=== PATIENT | female | born 1960 | race Caucasian/White ===

== ENCOUNTER 2018-04-23 19:00 | Emergency (ER) | payer MEDICAID ==
[~2018-04-23] VITALS: Ht 149.9 cm; Wt 83.7 kg
[~2018-04-23 19:00] MED LIST: ASPI81CT95 PO; ATOR20TA PO; CALC1CAP26 PO; ISOS10TA9 PO; METO25TA PO; OMEP40EC1 PO; [UNRECOGNIZED DRUG - CODE] PO
[2018-04-23 19:06] VITALS: BP 187/98
--- NOTE | 2018-04-23 20:02 | NUR ---
57 Y/O F BIB DAUGHTER WITH C/O BACK OF HEAD ACHE, BL EAR RINGING, SORE THROAT, DIZZY, CHILLS X 10 DAYS WORSE THE LAST 2 DAYS, DIARRHEA TODAY;PT DENIES N/V; SKIN IS INTACT, PINK/WARM/DRY; AAOX4, PERRL, WITH EVEN AND STEADY GAIT; LUNGS CLEAR BL, BREATHING UNLABORED; HR EVEN AND REGULAR, BL PERIPHERAL PULSES PRESENT; BS ACTIVE X4, NO TENDERNESS TO PALPATION, NO HEPATOSPLENOMEGALLY PALPATED, RESONANT TO PERCUSSION; PT DENIES ANY FEVER, CP, SOB, OR COUGH AT THIS TIME; PT STATES 10/10 PAIN AT THIS TIME; VSS; PATIENT POSITIONED FOR COMFORT; HOB ELEVATED; BEDRAILS UP X2; BED DOWN.
--- NOTE | 2018-04-23 20:02 | NUR ---
PT AMBULATED TO BED 7 AT THIS TIME
--- NOTE | 2018-04-23 20:03 | NUR ---
[facility] MADE AWARE OF PTS CURRENT CONDITION
[2018-04-23 20:16] LABS: CARBON DIOXIDE 24.7 mmol/L (21-32); CREATININE 0.7 mg/dL (0.6-1.3); POTASSIUM 3.7 mmol/L (3.5-5.1)
[2018-04-23 20:23] LABS: ALBUMIN 3.6 g/dL (3.4-5.0); TOTAL BILIRUBIN 0.2 mg/dL (0.0-1.0)
[2018-04-23 20:29] LABS: BASOPHILS % (AUTO) 2.3 % (0.0-2.0); EOSINOPHILS % (AUTO) 2.5 % (0.0-4.0); HEMATOCRIT 37.7 % (36-48); HEMOGLOBIN 12.4 g/dL (12.0-16.0); LYMPHOCYTES % (AUTO) 35.6 % (20.5-51.1); MEAN CORPUSCULAR HEMOGLOBIN 27 pg (27-31); MEAN CORPUSCULAR HGB CONC 33 g/dL (33-37); MONOCYTES % (AUTO) 8.4 % (1.7-9.3); NEUTROPHILS % (AUTO) 51.2 % (42.2-75.2); PLATELET COUNT (AUTO) 270 K/uL (140-450); RED BLOOD CELL COUNT(AUTO) 4.59 MIL/uL (4.20-5.40); RED CELL DISTRIBUTION WIDTH 14.1 % (11.6-13.7)
--- NOTE | 2018-04-23 21:54 | NUR ---
DR. GOMEZ AT BEDSIDE EVALUATING
[2018-04-23] MEDS ORDERED: KETOROLAC 60 MG/2 ML VIAL IM ONE (22:00)
[2018-04-23 22:51] VITALS: BP 145/89
--- NOTE | 2018-04-23 22:53 | NUR ---
Patient discharged with v/s stable. Written and verbal after care instructions given and explained. Patient alert, oriented and verbalized understanding of instructions. Ambulatory with steady gait. All questions addressed prior to discharge. ID band removed. Patient advised to follow up with PMD. Rx of MOTRIN, NORCO, ATARAX given. Patient educated on indication of medication including possible reaction and side effects. Opportunity to ask questions provided and answered.
== END 2018-04-23 22:51 | disposition home or self-care (01) ==
LOC: MED 19:00
DX: R51 Headache (principal); R50.9 Fever, unspecified; R06.02 Shortness of breath; K21.9 Gastro-esophageal reflux disease without esophagitis; I10 Essential (primary) hypertension; Z79.82 Long term (current) use of aspirin; Z88.0 Allergy status to penicillin; Z79.899 Other long term (current) drug therapy; Z86.73 Personal history of transient ischemic attack (TIA), and cerebral infarction without residual deficits
CPT/HCPCS: 36415; 80053; 81002; 81025; 83690; 85025; 96372; 99284; J1885

== ENCOUNTER 2021-06-19 14:25 | Emergency (ER) | payer MEDICAID ==
[~2021-06-19] VITALS: Ht 154.9 cm; Wt 79.4 kg
[~2021-06-19 14:25] MED LIST changes: -OMEP40EC1 PO; +OMEP40EC24 PO
[2021-06-19 14:28] VITALS: BP 117/68
--- NOTE | 2021-06-19 14:28 | NUR ---
60 y/o Female BIB daughter for evaluation of stroke-like symptoms x 2 days including slurred speech and gen weakness. Per patient's daughter, the patient initially complained of waking up with a cramping sensation to the right hand which was alleviated with massage. There is loss of sensation and numbness to right arm. Per pt there is numbness to the left side of her face and with slight difficulty speaking x 2 days. Today pt has a c/o chest pain radiating to the back of her nek 7/10 pain. PmHx: CAD, HTN, CVA 2009, GERD Allergies: Eggs/PCNs Home meds: see list
--- NOTE | 2021-06-19 14:28 | NUR ---
Alerted to pt in lobby with stroke-like symptoms, ERMD aware. Pt assisted to come back to room 03
--- NOTE | 2021-06-19 14:31 | NUR ---
Patient ambulated with assistance to bed 3.
--- NOTE | 2021-06-19 14:31 | NUR ---
ERMD at bedside to assess pt. Made aware of HR of 47. NNO at this time
--- NOTE | 2021-06-19 14:35 | NUR ---
Blood drawn and IV insertion successful
--- NOTE | 2021-06-19 14:44 | NUR ---
Radiology at bedside to perform xray
[2021-06-19 15:33] LABS: BASOPHILS # (AUTO) 0.1 K/uL (0.00-0.22); BASOPHILS % (AUTO) 0.5 % (0.0-2.0); EOSINOPHILS # (AUTO) 0.1 K/uL (0-0.4); EOSINOPHILS % (AUTO) 1.3 % (0.0-4.0); HEMATOCRIT 39.9 % (36-48); HEMOGLOBIN 13.1 g/dL (12.0-16.0); LYMPHOCYTES # (AUTO) 5.1 K/uL (2.5-16.5); LYMPHOCYTES % (AUTO) 45.8 % (20.5-51.1); MEAN CORPUSCULAR HEMOGLOBIN 27 pg (27-31); MEAN CORPUSCULAR HGB CONC 33 g/dL (33-37); MEAN CORPUSCULAR VOLUME 82.3 fL (80-94); MONOCYTES # (AUTO) 0.8 K/uL (0.8-1.0); MONOCYTES % (AUTO) 7.1 % (1.7-9.3); NEUTROPHILS % (AUTO) 45.3 % (42.2-75.2); PLATELET COUNT (AUTO) 313 K/uL (140-450); RED BLOOD CELL COUNT(AUTO) 4.84 MIL/uL (4.20-5.40); RED CELL DISTRIBUTION WIDTH 15.1 % (11.6-13.7); WHITE BLOOD COUNT (AUTO) 11.1 K/uL (4.8-10.8)
[2021-06-19 15:49] LABS: ALBUMIN 4.1 g/dL (3.4-5.0); ANION GAP 14.9 (8-16); CARBON DIOXIDE 26.4 mmol/L (21-32); CREATININE 0.8 mg/dL (0.6-1.3); POTASSIUM 4.3 mmol/L (3.5-5.1); TOTAL BILIRUBIN 0.4 mg/dL (0.0-1.0)
[2021-06-19 15:50] LABS: PROTHROMBIN TIME 10.2 secs (10.8-13.4)
--- NOTE | 2021-06-19 18:58 | NUR ---
PT WOULD LIKE TO EAT, ERMD MADE AWARE. PT CAN EAT IF BEDSIDE NURSING SWALLOW EVAL COMPLETED. BEDSIDE NURSING SWALLOW DONE AND PASSED. NO COUGHING OR DYSPHAGIA AT THIS TIME. ABLE TO SWALLOW FREELY.
--- NOTE | 2021-06-19 19:05 | NUR ---
RAMBO PAREDES TEST DONE AND HANDED TO MOBILE APPLICATION ARCHITECT.
--- NOTE | 2021-06-19 19:44 | NUR ---
PT LAYING IN BED LOCKED IN LOWEST POSITION W X2 SIDERAILS UP FOR PT SAFETY. PT DENIES ANY CHEST PAIN OR SOB. PT REPORTS ON GOING NECK PAIN 03/13 (ERMD MADE AWARE). PT REPORTS FRIDAY SHE BEGAN TO HAVE R ARM NUMBNESS AND WEAKNESS, W INABILITY TO FULLY CLOSE HER HAD, REPORTS 3 OF HER FINGERS DONT FULLY CLOSED WHEN SHE CLOSES HER HAND. DENIES GENERALIZED BODY WEAKNESS EXCEPT FOR R ARM. PT ALSO REPORTS HER L SIDE OF MOUTH FEELS LIKE ITS BEING PULLED BUT HER SPEECH HAS IMPROVED. SPEECH NOTED CLEAR AT THIS TIME, PT REPORTS SHE HAD JUST FINISHED A SALAD W/O DIFFICULTY SWALLOWING. VSS. BREATHING EVEN AND UNLABORED. NAD NOTED, WILL CONTINUE TO MONITOR. DAUGHTER AT BEDSIDE.
--- NOTE | 2021-06-19 19:50 | NUR ---
PT AMBULATED TO BATHROOM W STEADY GAIT. DAUGHTER BY SIDE.
[2021-06-19] MEDS ORDERED: ACETAMINOPHEN 325 MG TAB PO ONE (20:00)
--- NOTE | 2021-06-19 22:01 | NUR ---
PT REPORTS PAIN IMPROVEMENT. REPORTS SHE FEELS GOOD. VSS. BREATHING EVEN AND UNLABORED. NAD NOTED, WILL CONTINUE TO MONITOR.
[2021-06-19 22:35] LABS: APPEARANCE,URINE CLEAR (CLEAR); BILIRUBIN,URINE NEGATIVE (NEGATIVE); BLOOD, URINE NEGATIVE (NEGATIVE); COLOR,URINE YELLOW (YELLOW); LEUKOCYTE ESTERASE ,URINE NEGATIVE (NEGATIVE); NITRITE, URINE NEGATIVE (NEGATIVE); UGLUCOSE NEGATIVE (NEGATIVE)
--- NOTE | 2021-06-20 00:15 | NUR ---
PT APPEARS TO BE RESTING W EYES CLOSED, BLANKET ON. BREATHING EVEN AND UNLABORED. NAD NOTED, WILL CONTINUE TO MONITOR. VSS.
--- NOTE | 2021-06-20 02:50 | NUR ---
PT APPEARS TO BE RESTING W EYES CLOSED SUPINE POSITION, BLANKET ON. BED LOCKED IN LOWEST POSITION W X2 SIDERAILS UP FOR PT SAFETY. BREATHING EVEN AND UNLABORED. NAD NOTED, WILL CONTINUE TO MONITOR. VSS.
--- NOTE | 2021-06-20 04:25 | NUR ---
Pt report given to CLEMENT REYNA FROM [facility] – [place]. Transfer of care at this time.
[2021-06-20 04:45] VITALS: BP 116/62
--- NOTE | 2021-06-20 04:45 | NUR ---
[place] [facility] [place] being [place] due to HIGHER LEVEL OF CARE. Receiving facility has accepting physician and available space. ER physician has signed transfer form. Patient or responsible democrat has agreed to transfer and signed form. Patient belongings inventoried and will be sent with patient. Copy of nursing notes, lab reports, EKG, Physicians Orders and X-rays to be sent with patient. Report called to CLEMENT REYNA at receiving facility. [facility] RECEIVED PT AT THIS TIME.
--- NOTE | 2021-06-20 04:45 | NUR ---
[facility] AT BEDSIDE FOR TRANSPORT
== END 2021-06-20 04:45 | disposition short-term general hospital (02) ==
LOC: MED 14:25
DX: M79.641 Pain in right hand (principal); Z20.822 Contact with and (suspected) exposure to COVID-19; K21.9 Gastro-esophageal reflux disease without esophagitis; I10 Essential (primary) hypertension; Z79.899 Other long term (current) drug therapy; Z79.82 Long term (current) use of aspirin; Z88.0 Allergy status to penicillin; Z91.012 Allergy to eggs; Z86.73 Personal history of transient ischemic attack (TIA), and cerebral infarction without residual deficits
CPT/HCPCS: 36415; 70450; 70496; 70498; 71045; 80053; 81003; 84484; 85025; 85610; 85730; 86886; 86900; 86901; 87426; 99291; Q0092; Q9967; 93005; 99285

== ENCOUNTER 2023-09-01 23:53 | Emergency (ER) | payer MEDICAID, OTHER ==
[~2023-09-01] VITALS: Ht 152.4 cm; Wt 78.0 kg
[~2023-09-01 23:53] MED LIST changes: +CETI1SOL PO; -ISOS10TA9 PO; +LISI-487 PO; -METO25TA PO; -OMEP40EC24 PO; -[UNRECOGNIZED DRUG - CODE] PO
[2023-09-02 00:09] VITALS: BP 162/84; PULSE 62; RESP 16; TEMP 98.1; O2SAT 99
[2023-09-02] MEDS ORDERED: KETOROLAC 60 MG/2 ML VIAL IM ONE (00:25)
[2023-09-02] MEDS ORDERED: IBUP-2213 PO (02:16)
[2023-09-02 03:05] VITALS: BP 162/84; PULSE 62; RESP 16; TEMP 98.1; O2SAT 99
== END 2023-09-02 03:05 | disposition home or self-care (01) ==
LOC: MED 23:53
DX: I11.9 Hypertensive heart disease without heart failure (principal); Z86.73 Personal history of transient ischemic attack (TIA), and cerebral infarction without residual deficits; Z88.0 Allergy status to penicillin; Z88.8 Allergy status to other drugs, medicaments and biological substances; Z79.899 Other long term (current) drug therapy
CPT/HCPCS: 81002; 93005; 96372; 99283; J1885